=== PATIENT | female | born 1960 | race Caucasian/White ===

== ENCOUNTER 2017-04-13 11:37 | Emergency (ER) | payer OTHER ==
[2017-04-13] MEDS ORDERED: Lactated Ringers 1,000 ML IV SCH (12:30)
--- NOTE | 2017-04-13 12:48 | EDM.PDOC ---
ED HPI GENERAL MEDICAL PROBLEM - General Chief Complaint: Upper Extremity Injury/Pain Stated Complaint: LEFT ARM Time Seen by Provider: 04/13/17 11:40 Source of Information: Reports: Patient, Family History Limitations: Reports: No Limitations - History of Present Illness INITIAL COMMENTS - FREE TEXT/NARRATIVE: 57 y.o.w.oneyda came to the ed sgortly after she was ice skating and fell onto her right outstretched arm, noticing, she can not bend her left elbow anymore. No other acute medical issue at this time. BP 130/63 Plulse 56 Temp 36.7 Pulse ox 97% on RA Onset: Today Onset Date: 04/13/17 Onset Time: 11:00 Duration: Minutes:, Constant Location: Reports: Upper Extremity, Left Quality: Reports: Ache, Dull Severity: Moderate Improves with: Reports: Rest Worsens with: Reports: Movement Context: Reports: Trauma (fell on left elbow while roller scating) left elbow Pain Score (Numeric/FACES): 8 - Related Data Allergies Allergy/AdvReac Type Severity Reaction Status Date / Time pseudoephedrine HCl Allergy Unknown Cannot Verified 04/13/17 12:13 [From Sudafed] Remember cephalexin monohydrate Allergy Hives Verified 04/13/17 12:13 [From Keflex] levofloxacin [From Levaquin] Allergy Tachycardia Verified 04/13/17 12:13 Penicillins Allergy Hives Verified 04/13/17 12:13 telithromycin [From KETEK] Allergy Tachycardia Verified 04/13/17 12:13 frozen protien Allergy Hives Uncoded 04/13/17 12:13 Home Meds: Home Meds Albuterol [Ventolin HFA] 1 puff INH Q4H PRN 12/07/13 [History] Escitalopram Oxalate [Escitalopram Oxalate] 20 mg PO DAILY 12/07/13 [History] Fluticasone/Salmeterol [Advair HFA 115-21 MCG] 2 puff INH BID 12/07/13 [History] Losartan/Hydrochlorothiazide [Hyzaar 100-25 Tablet] 0.5 each PO DAILY 12/07/13 [ History] Metoprolol Tartrate [Lopressor] 50 mg PO BID 12/07/13 [History] Montelukast Sodium 10 mg PO BEDTIME 12/07/13 [History] Potassium Chloride [Klor-Con M20] 20 meq PO BID 12/07/13 [History] atorvaSTATin Calcium [Atorvastatin Calcium] 20 mg PO DAILY 12/07/13 [History] clonazePAM [Clonazepam] 0.5 mg PO BID 12/07/13 [History] Albuterol [Proventil Neb Soln] 1.25 mg NEB QIDRT 09/30/14 [History] Aspirin [Ecotrin] 81 mg PO DAILY 09/30/14 [History] Flaxseed [Flaxseed Oil] 1,000 mg BID 09/30/14 [History] Nitroglycerin [Nitrostat] 0.4 mg SL Q5M PRN 09/30/14 [History] Past Medical History HEENT History: Reports: Sinusitis Cardiovascular History: Reports: CAD, [place] Respiratory History: Reports: Asthma, Pneumonia, Recurrent, Pulmonary Fibrosis Musculoskeletal History: Reports: Back Pain, Chronic Other Musculoskeletal History: L ankle fx, Psychiatric History: Reports: Anxiety, Depression 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 Other Dermatologic History: ecxema - Past Surgical History Other HEENT Surgeries/Procedures: bilat laser surgery for glaucoma Other Musculoskeletal Surgeries/Procedures:: R rotator cuff surg, L hammer toe surg x 2, R foot surg x 2 Social & Family History - Tobacco Use Smoking Status *Q: Current Every Day Smoker Years of Tobacco use: 24 Packs/Tins Daily: 1.5 Second Hand Smoke Exposure: Yes - Alcohol Use Days Per Week of Alcohol Use: 0 - Recreational Drug Use Recreational Drug Use: No Review of Systems - Review of Systems Review Of Systems: See Below Constitutional: Reports: No Symptoms Eyes: Reports: No Symptoms Ears: Reports: No Symptoms Nose: Reports: No Symptoms Mouth/Throat: Reports: No Symptoms Respiratory: Reports: No Symptoms Cardiovascular: Reports: No Symptoms GI/Abdominal: Reports: No Symptoms Genitourinary: Reports: No Symptoms Musculoskeletal: Reports: Arm Pain Skin: Reports: No Symptoms Neurological: Reports: No Symptoms Psychiatric: Reports: No Symptoms ED EXAM, GENERAL - Physical Exam Exam: See Below Exam Limited By: No Limitations General Appearance: Alert, WD/WN, Mild Distress Eye Exam: Bilateral Eye: Normal Inspection Ears: Normal External Exam Ear Exam: Bilateral Ear: Auricle Normal Nose: Normal Inspection, Normal Mucosa Throat/Mouth: Normal Inspection, Normal Lips Head: Atraumatic, Normocephalic Neck: Normal Inspection, Supple, Non-Tender, Full Range of Motion Respiratory/Chest: No Respiratory Distress, Lungs Clear, Normal Breath Sounds, No Accessory Muscle Use Cardiovascular: Normal Peripheral Pulses, Regular Rate, Rhythm, No Edema, No JVD , No Murmur, No Rub Peripheral Pulses: 1+: Brachial (L) GI/Abdominal: Normal Bowel Sounds, Soft, Non-Tender (Female) Exam: Deferred Rectal (Female) Exam: Deferred Back Exam: Normal Inspection, Full Range of Motion Extremities: Arm Pain (left elbow pain due to closed post dislocation. ) Neurological: Alert, Oriented, CN II-XII Intact Psychiatric: Normal Affect, Normal Mood Skin Exam: Warm, Dry, Intact, Normal Color, No Rash Lymphatic: No Adenopathy ED TRAUMA EXTREMITY PROCEDURES - Joint Reduction Site: Other (left elbow postdislocation, closed) Sedation: Conscious Sedation (done by anesthesia) Pre-Procedure NV Status: Normal Post-Procedure NV Status: Normal Number of Attempts: 1 Post-Reduction Imaging: Completely Reduced, Fracture Seen (Coronoid process) Joint Reduction Complications: Yes Joint Reduction Complication Description: No complication - Splinting Right Upper Extremity Splint Site: R elbow after reduction Pre-Procedure NV Status: Normal Post-Procedure NV Status: Normal Splint Material: Plaster Applied & Form Fitted By: Provider Provider Post-Splint Application NV Check: NV Status Normal, Good Position Complications: No Course - Vital Signs Text/Narrative:: 57 y.o.w.oneyda came to the ed sgortly after she was ice skating and fell onto her right outstretched arm, noticing, she can not bend her left elbow anymore. No other acute medical issue at this time. BP 130/63 Plulse 56 Temp 36.7 Pulse ox 97% on RA PE: Closed post left elbow dislocation Imaging: Closed posterior elbow dislocation with possible coronoid process fx Impression: Closed posterior elbow dislocation with possible coronoid process fx Tx: Shoulde reduction, Plaster splint placed, left elbow. [place] Reexam: Improved, good CAP refill Plan: D/C with instructions Last Recorded V/S: Last Vital Signs Temp 36.7 C 04/13/17 13:17 Pulse 64 04/13/17 14:00 Resp 16 04/13/17 14:00 BP 112/52 L 04/13/17 14:00 Pulse Ox 97 04/13/17 14:00 - Orders/Labs/Meds Orders: Active Orders 24 hr Category Date Time Status Oxygen Therapy Adult [Oxygen Therapy, ED] [] Care 04/13/17 12:52 Active ASDIRECTED Peripheral IV Insertion Adult [OM.PC] Routine Oth 04/13/17 12:30 Ordered Meds: Medications Discontinued Medications Generic Name Dose Route Start Last Admin Trade Name Freq PRN Reason Stop Dose Admin Lactated Ringer's 1,000 mls @ 125 mls/hr 04/13/17 12:30 04/13/17 12:30 Ringers, Lactated IV 125 mls/hr ASDIRECTED HUNTER Administration Sodium Chloride 10 ml 04/13/17 14:03 04/13/17 12:30 Saline Flush FLUSH 10 ml ASDIRECTED PRN Administration Keep Vein Open Departure - Departure Time of Disposition: 13:40 Disposition: Home, Self-Care 01 Condition: Good Clinical Impression: Closed posterior dislocation of left elbow Qualifiers: Encounter type: initial encounter Qualified Code(s): S53.125A - Posterior dislocation of left ulnohumeral joint, initial encounter - Discharge Information Instructions: Elbow Fracture, Simple, Elbow Dislocation Referrals: Kelechi Florez MD [Primary Care Provider] - Roger Guy DO [Physician] - Forms: ED Department Discharge Additional Instructions: Rest, Ice and elevation, motrin for pain and healing, please come back if your symptoms get worse acutely. Follow Up Apr at [address] Jan [facility] at [facility]. [phone] - My Orders Last 24 Hours: My Active Orders 04/13/17 12:30 Peripheral IV Insertion Adult [OM.PC] Routine 04/13/17 12:52 Oxygen Therapy Adult [Oxygen Therapy, ED] [] ASDIRECTED - Assessment/Plan Last 24 Hours: My Active Orders 04/13/17 12:30 Peripheral IV Insertion Adult [OM.PC] Routine 04/13/17 12:52 Oxygen Therapy Adult [Oxygen Therapy, ED] [] ASDIRECTED
[2017-04-13] MEDS ORDERED: Propofol 200 MG/20 ML SDV IV ONE (12:50)
[2017-04-13] MEDS ORDERED: Midazolam 1 MG/ML 2 ML SDV IV ONE (12:50)
[2017-04-13] MEDS ORDERED: Sodium Chloride 0.9% 10 ML Syringe FLUSH PRN (14:03)
--- NOTE | 2017-04-13 14:32 | CR ---
INDICATION: Fall, injury, pain, and swelling. LEFT ELBOW: Frontal and lateral views of the left elbow reveal a posterior dislocation of the radius and ulna with respect to the humerus. There appears to be an angulated chip fracture fragment off the coronoid process of the ulna. A few other tiny areas of density are noted which could represent tiny avulsion chip fracture fragments along the olecranon process. No other bone or joint abnormality was seen. IMPRESSION: Fracture/dislocation elbow joint. MTDD
--- NOTE | 2017-04-13 14:36 | CR ---
INDICATION: Post reduction. LEFT ELBOW: Two views of the left elbow revealed the dislocation of the left elbow to be satisfactorily reduced. The chip fracture fragment seen on the lateral view, pre-reduction, is still visualized, but not as well seen with the overlying radius. No other bone or joint abnormality was suggested. IMPRESSION: Satisfactory reduction. Adequate position and alignment fracture/ dislocation of the elbow joint. Report was called to Dr. Silver immediately after the examination was completed , 04/13/2017. KRISTY
[2017-04-13 14:47] VITALS: BP 112/52
== END 2017-04-13 14:20 | disposition home or self-care (01) ==
LOC: FB.ED 11:37
DX: S53.125A Posterior dislocation of left ulnohumeral joint, initial encounter (principal); I25.10 Atherosclerotic heart disease of native coronary artery without angina pectoris; J45.909 Unspecified asthma, uncomplicated; F17.210 Nicotine dependence, cigarettes, uncomplicated; Z88.1 Allergy status to other antibiotic agents; Z88.0 Allergy status to penicillin; Z88.8 Allergy status to other drugs, medicaments and biological substances; Z79.899 Other long term (current) drug therapy; W19.XXXA Unspecified fall, initial encounter
CPT/HCPCS: 24600; 73070; 73080; 96361; 96374; 96375; 99152; 99284; J2250; J2704; J7050; J7120

== ENCOUNTER 2020-11-10 17:07 | Observation (INO) | payer OTHER ==
--- NOTE | 2020-11-10 17:32 | EDM.PDOC ---
ED HPI GENERAL MEDICAL PROBLEM - General Stated Complaint: anxiety Time Seen by Provider: 11/10/20 17:20 Source of Information: Reports: Patient History Limitations: Reports: No Limitations - History of Present Illness INITIAL COMMENTS - FREE TEXT/NARRATIVE: 60-year-old female who reports at approximately noon today she was walking up some steps and she felt very short winded and had to stop mcc up to rest before she can go all the way up the steps. She states this is quite unusual for her and that she normally does not have to do this. At 4:15 PM today she was sitting at her computer desk and she developed onset of pain in both of her upper posterior shoulder and upper back area that was an aching and sore type pain. Nothing really seemed to make the pain better and nothing seemed to make the pain worse. This pain was at a 6/10 level of discomfort and it lasted for approximately one hour. She was doing nothing except sitting at the computer desk when this occurred. She did not feel any shortness of breath. She had no nausea or vomiting. She did have a warm feeling that went across her entire left chest that lasted for about 10 minutes. This pain in her shoulders and the chest were has completely resolved and she feels back to normal except she feels very anxious about this and she came in for evaluation. She did take 4 baby aspirins at home when this occurred. She states that about 9-10 years ago she had some discomfort in her shoulders and chest and at that time, she had a heart attack (her troponin enzymes micah) and they did a cardiac catheterization that showed coronary artery disease but it was nothing that would require any intervention. She states that since then she gets quite a bit of anxiety whenever she has some pains that are similar to what she had at that time and feels that this is a contributing factor. No fevers or chills. No nasal congestion. No sore throat. No trouble swallowing. There are no other associated signs or symptoms. There are no other modifying factors. 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: Aspirin (4 baby aspirin) Bilateral Shoulder Pain Score (Numeric/FACES): 6 - Related Data Allergies Allergy/AdvReac Type Severity Reaction Status Date / Time pseudoephedrine HCl Allergy Unknown Cannot Verified 04/13/17 12:13 [From Sudafed] Remember cephalexin monohydrate Allergy Hives Verified 04/13/17 12:13 [From Keflex] levofloxacin [From Levaquin] Allergy Tachycardia Verified 04/13/17 12:13 Penicillins Allergy Hives Verified 04/13/17 12:13 telithromycin [From KETEK] Allergy Tachycardia Verified 04/13/17 12:13 frozen protien Allergy Hives Uncoded 04/13/17 12:13 Home Meds: Home Meds Albuterol [Ventolin HFA] 1 puff INH Q4H PRN 12/07/13 [History] Escitalopram Oxalate 20 mg PO DAILY 12/07/13 [History] Fluticasone/Salmeterol [Advair HFA 115-21 MCG] 2 puff INH BID 12/07/13 [History] Losartan/Hydrochlorothiazide [Hyzaar 100-25 Tablet] 0.5 each PO DAILY 12/07/13 [History] Metoprolol Tartrate [Lopressor] 50 mg PO BID 12/07/13 [History] Montelukast Sodium 10 mg PO BEDTIME 12/07/13 [History] Potassium Chloride [Klor-Con M20] 20 meq PO BID 12/07/13 [History] atorvaSTATin Calcium [Atorvastatin Calcium] 20 mg PO DAILY 12/07/13 [History] clonazePAM [Clonazepam] 0.5 mg PO BID 12/07/13 [History] Albuterol [Proventil Neb Soln] 1.25 mg NEB QIDRT 09/30/14 [History] Aspirin [Ecotrin] 81 mg PO DAILY 09/30/14 [History] Flaxseed [Flaxseed Oil] 1,000 mg BID 09/30/14 [History] Nitroglycerin [Nitrostat] 0.4 mg SL Q5M PRN 09/30/14 [History] Past Medical History HEENT History: Reports: Impaired Vision, Sinusitis Cardiovascular History: Reports: CAD, Hypertension, [place] Respiratory History: Reports: Asthma, Pneumonia, Recurrent, Pulmonary Fibrosis Musculoskeletal History: Reports: Back Pain, Chronic Other Musculoskeletal History: L ankle fx, Psychiatric History: Reports: Anxiety, Depression 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 Dermatologic History: Reports: Eczema - Past Surgical History Other HEENT Surgeries/Procedures: bilat laser surgery for glaucoma Cardiovascular Surgical History: Reports: Other (See Below) (Cardiac catheterization with no stent placed.) GI Surgical History: Reports: Appendectomy, Cholecystectomy Female Surgical History: Reports: Section, Hysterectomy Other Musculoskeletal Surgeries/Procedures:: R rotator cuff surg, L hammer toe surg x 2, R foot surg x 2 Social & Family History - Tobacco Use Tobacco Use Status *Q: Current Every Day Tobacco User - Alcohol Use Alcohol Use History: No - Living Situation & Occupation Living situation: Reports: Occupation: Employed (She is a teacher) ED ROS GENERAL - Review of Systems Review Of Systems: See Below Constitutional: Denies: Fever, Chills HEENT: Denies: Throat Pain Respiratory: Denies: Shortness of Breath, Cough Cardiovascular: Denies: Chest Pain, Palpitations GI/Abdominal: Denies: Abdominal Pain, Nausea, Vomiting : Denies: Dysuria, Pain Musculoskeletal: Reports: Back Pain. Denies: Shoulder Pain, Arm Pain, Foot Pain Skin: Denies: Diaphoresis, Rash Neurological: Denies: Dizziness, Headache Psychiatric: Reports: Anxiety Hematologic/Lymphatic: Denies: Easy Bleeding, Easy Bruising ED EXAM, GENERAL - Physical Exam Exam: See Below Exam Limited By: No Limitations General Appearance: Alert, WD/WN, Anxious (Otherwise, no acute distress.) Eye Exam: Bilateral Eye: EOMI, Normal Inspection, PERRL Ears: Normal External Exam, Hearing Grossly Normal Ear Exam: Bilateral Ear: Auricle Normal Nose: Normal Inspection, Normal Mucosa, No Blood Throat/Mouth: Normal Inspection, Normal Lips, Normal Oropharynx, Normal Voice, No Airway Compromise Head: Atraumatic, Normocephalic Neck: Normal Inspection, Supple, Non-Tender, Full Range of Motion Respiratory/Chest: No Respiratory Distress, Lungs Clear, Normal Breath Sounds, No Accessory Muscle Use, Chest Non-Tender Cardiovascular: Normal Peripheral Pulses, Regular Rate, Rhythm, No Murmur Peripheral Pulses: 2+: Radial (L), Radial (R), Dorsalis Pedis (L), Dorsalis Pedis (R) GI/Abdominal: Normal Bowel Sounds, Soft, Non-Tender, No Organomegaly Back Exam: Normal Inspection, Full Range of Motion Extremities: Normal Inspection, Normal Range of Motion, Non-Tender, No Pedal Edema, Normal Capillary Refill Neurological: Alert, Oriented, CN II-XII Intact, Normal Cognition, No Motor/Sensory Deficits Psychiatric: Anxious Skin Exam: Warm, Dry, Intact, Normal Color, No Rash #1 Interpretation EKG Date: 11/10/20 Time: 17:16 Rhythm: NSR Rate (Beats/Min): 65 [place]: Normal P-Wave: Present QRS: Normal ST-T: Normal QT: Normal Comparison: No Change (No change from an EKG performed on 09/30/2014.) Course - Vital Signs Last Recorded V/S: Last Vital Signs Temp 36.8 C 11/10/20 17:08 Pulse 67 11/10/20 17:08 Resp 18 11/10/20 17:08 BP 175/104 H 11/10/20 17:08 Pulse Ox 97 11/10/20 17:08 - Orders/Labs/Meds Orders: Active Orders 24 hr Category Date Time Status Chest 1V Frontal [CR] Stat Exams 11/10/20 17:51 Taken Sodium Chloride 0.9% [Saline Flush] Med 11/10/20 17:51 Active 10 ml FLUSH ASDIRECTED PRN Peripheral IV Insertion Adult [OM.PC] Routine Oth 11/10/20 17:51 Ordered EKG 12 Lead [EK] Routine Ther 11/10/20 17:52 Ordered Medication Orders Sodium Chloride (Sodium Chloride 0.9% 10 Ml Syringe) 10 ml FLUSH ASDIRECTED PRN PRN Reason: Keep Vein Open Labs: Laboratory Tests 11/10/20 11/10/20 11/10/20 Range/Units 18:00 18:00 18:00 WBC 6.0 (3.0-10.3) x10-3/uL RBC 4.46 (3.60-5.20) x10(6)uL Hgb 13.7 (11.4-15.5) g/dL Hct 40.3 (34.2-48.2) % MCV 90.3 (76.7-100.5) fL MCH 30.8 (23.9-33.9) pg MCHC 34.1 (31.9-34.8) g/dL RDW 13.4 (12.3-16.5) % Plt Count 275 (151-488) x10(3)uL MPV 7.4 (7.1-12.4) fL Neut % (Auto) 51.8 (30.8-76.2) % Lymph % (Auto) 35.4 (18.4-52.1) % [place] % (Auto) 8.5 (4.4-15.7) % Eos % (Auto) 3.4 (0.6-8.1) % Baso % (Auto) 0.9 (0.2-1.5) % Neut # (Auto) 3.1 (1.5-6.3) x10-3/uL Lymph # (Auto) 2.1 (1.0-4.4) x10-3/uL [place] # (Auto) 0.5 (0.3-1.0) x10-3/uL Eos # (Auto) 0.2 (0.0-0.8) x10-3/uL Baso # (Auto) 0.1 (0.0-0.1) x10-3/uL D-Dimer, Quantitative 0.36 (0.0-0.59) mg/LFEU Sodium 141 (135-145) mmol/L Potassium 4.4 (3.5-5.3) mmol/L Chloride 103 (100-110) mmol/L Carbon Dioxide 31 (21-32) mmol/L BUN 15 (7-18) mg/dL Creatinine 0.9 (0.55-1.02) mg/dL Est Cr Clr Drug Dosing 63.01 mL/min Estimated GFR (MDRD) > 60 (>60) BUN/Creatinine Ratio 16.7 (9-20) Glucose 98 (80-116) mg/dL Calcium 9.9 (8.6-10.2) mg/dL Magnesium 2.0 (1.8-2.5) mg/dL Total Bilirubin 0.4 (0.1-1.3) mg/dL AST 11 (5-25) IU/L ALT 19 (12-36) U/L Alkaline Phosphatase 126 H (56-112) IU/L Troponin I (4.0-60.3) pg/mL Total Protein 7.1 (6.0-8.0) g/dL Albumin 3.5 (3.5-5.2) g/dL Globulin 3.6 g/dL Albumin/Globulin Ratio 1.0 // Range/Units 18:00 WBC (3.0-10.3) x10-3/uL RBC (3.60-5.20) x10(6)uL Hgb (11.4-15.5) g/dL Hct (34.2-48.2) % MCV (76.7-100.5) fL MCH (23.9-33.9) pg MCHC (31.9-34.8) g/dL RDW (12.3-16.5) % Plt Count (151-488) x10(3)uL MPV (7.1-12.4) fL Neut % (Auto) (30.8-76.2) % Lymph % (Auto) (18.4-52.1) % [place] % (Auto) (4.4-15.7) % Eos % (Auto) (0.6-8.1) % Baso % (Auto) (0.2-1.5) % Neut # (Auto) (1.5-6.3) x10-3/uL Lymph # (Auto) (1.0-4.4) x10-3/uL [place] # (Auto) (0.3-1.0) x10-3/uL Eos # (Auto) (0.0-0.8) x10-3/uL Baso # (Auto) (0.0-0.1) x10-3/uL D-Dimer, Quantitative (0.0-0.59) mg/LFEU Sodium (135-145) mmol/L Potassium (3.5-5.3) mmol/L Chloride (100-110) mmol/L Carbon Dioxide (21-32) mmol/L BUN (7-18) mg/dL Creatinine (0.55-1.02) mg/dL Est Cr Clr Drug Dosing mL/min Estimated GFR (MDRD) (>60) BUN/Creatinine Ratio (9-20) Glucose (80-116) mg/dL Calcium (8.6-10.2) mg/dL Magnesium (1.8-2.5) mg/dL Total Bilirubin (0.1-1.3) mg/dL AST (5-25) IU/L ALT (12-36) U/L Alkaline Phosphatase (56-112) IU/L Troponin I 14.7 (4.0-60.3) pg/mL Total Protein (6.0-8.0) g/dL Albumin (3.5-5.2) g/dL Globulin g/dL Albumin/Globulin Ratio Meds: Medications Generic Name Dose Route Start Last Admin Trade Name Freq PRN Reason Stop Dose Admin Sodium Chloride 10 ml 11/10/20 17:51 Sodium Chloride 0.9% 10 Ml Syringe FLUSH ASDIRECTED PRN Keep Vein Open - Radiology Interpretation Free Text/Narrative:: Portable chest x-ray shows no acute disease per my read. - Re-Assessments/Exams Free Text/Narrative Re-Assessment/Exam: 11/10/20 19:28: Patient's initial troponin was normal. The d-dimer was normal. All of her other labs are reassuringly normal. EKG was normal. She is still pain-free. At this point, I am turning the patient over to Dr. Florez. Please see his note in regard to the patient's further ED course and disposition. Departure - Departure Time of Disposition: 19:30 Disposition: Still A Patient 30 Condition: Fair Clinical Impression: Upper back pain Chest pain Qualifiers: Chest pain type: unspecified Qualified Code(s): R07.9 - Chest pain, unspecified Referrals: Jojo Wilkes PA [Primary Care Provider] - Sepsis Event Note (ED) - Focused Exam Vital Signs: Vital Signs Temp Pulse Resp BP Pulse Ox 11/10/20 17:08 36.8 C 67 18 175/104 H 97 - My Orders Last 24 Hours: My Active Orders 11/10/20 17:51 Chest 1V Frontal [CR] Stat Sodium Chloride 0.9% [Saline Flush] 10 ml FLUSH ASDIRECTED PRN Peripheral IV Insertion Adult [OM.PC] Routine 11/10/20 17:52 EKG 12 Lead [EK] Routine - Assessment/Plan Last 24 Hours: My Active Orders 11/10/20 17:51 Chest 1V Frontal [CR] Stat Sodium Chloride 0.9% [Saline Flush] 10 ml FLUSH ASDIRECTED PRN Peripheral IV Insertion Adult [OM.PC] Routine 11/10/20 17:52 EKG 12 Lead [EK] Routine
[2020-11-10] MEDS ORDERED: Sodium Chloride 0.9% 10 ML Syringe FLUSH PRN (17:51)
[2020-11-10] MEDS ORDERED: LORazepam 0.5 MG Tab PO ONE (19:46)
[2020-11-10] MEDS ORDERED: cloNIDine 0.1 MG Tab PO ONE (21:24)
--- NOTE | 2020-11-10 21:24 | EDM.PDOC ---
ED HPI GENERAL MEDICAL PROBLEM - General Chief Complaint: General Stated Complaint: anxiety Time Seen by Provider: 11/10/20 17:20 Source of Information: Reports: Patient History Limitations: Reports: No Limitations - History of Present Illness INITIAL COMMENTS - FREE TEXT/NARRATIVE: Gianni came in due to upper shoulder pain,bilateral,since 4:15 P.Earlier she had had some dyspne on exertion. Also,her BPO was high,hence a need to check it out in the ED. She saw Anjel Charles,and initial workup is negative for ACS. Her SBP is in the 170's .and she is a little anxious.Her Past Medical Histroy includes CAD,HTn and tobacco abuse. 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) Bilateral Shoulder Pain Score (Numeric/FACES): 6 - Related Data Allergies Allergy/AdvReac Type Severity Reaction Status Date / Time pseudoephedrine HCl Allergy Unknown Cannot Verified 04/13/17 12:13 [From Sudafed] Remember cephalexin monohydrate Allergy Hives Verified 04/13/17 12:13 [From Keflex] levofloxacin [From Levaquin] Allergy Tachycardia Verified 04/13/17 12:13 Penicillins Allergy Hives Verified 04/13/17 12:13 telithromycin [From KETEK] Allergy Tachycardia Verified 04/13/17 12:13 frozen protien Allergy Hives Uncoded 04/13/17 12:13 Home Meds: Home Meds Albuterol [Ventolin HFA] 1 puff INH Q4H PRN 12/07/13 [History] Escitalopram Oxalate 20 mg PO DAILY 12/07/13 [History] Fluticasone/Salmeterol [Advair HFA 115-21 MCG] 2 puff INH BID 12/07/13 [History] Losartan/Hydrochlorothiazide [Hyzaar 100-25 Tablet] 0.5 each PO DAILY 12/07/13 [History] Metoprolol Tartrate [Lopressor] 50 mg PO BID 12/07/13 [History] Montelukast Sodium 10 mg PO BEDTIME 12/07/13 [History] Potassium Chloride [Klor-Con M20] 20 meq PO BID 12/07/13 [History] atorvaSTATin Calcium [Atorvastatin Calcium] 20 mg PO DAILY 12/07/13 [History] clonazePAM [Clonazepam] 0.5 mg PO BID 12/07/13 [History] Albuterol [Proventil Neb Soln] 1.25 mg NEB QIDRT 09/30/14 [History] Aspirin [Ecotrin] 81 mg PO DAILY 09/30/14 [History] Flaxseed [Flaxseed Oil] 1,000 mg BID 09/30/14 [History] Nitroglycerin [Nitrostat] 0.4 mg SL Q5M PRN 09/30/14 [History] Past Medical History HEENT History: Reports: Impaired Vision, Sinusitis Cardiovascular History: Reports: CAD, Hypertension, [place] Respiratory History: Reports: Asthma, Pneumonia, Recurrent, Pulmonary Fibrosis Musculoskeletal History: Reports: Back Pain, Chronic Other Musculoskeletal History: L ankle fx, Psychiatric History: Reports: Anxiety, Depression 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 Dermatologic History: Reports: Eczema Other Dermatologic History: ecxema - Past Surgical History Cardiovascular Surgical History: Reports: Other (See Below) (Cardiac catheterization with no stent placed.) GI Surgical History: Reports: Appendectomy, Cholecystectomy Female Surgical History: Reports: Section, Hysterectomy Social & Family History - Family History Family Medical History: No Pertinent Family History - Tobacco Use Tobacco Use Status *Q: Current Every Day Tobacco User Years of Tobacco use: 29 Packs/Tins Daily: 1 - Caffeine Use Caffeine Use: Reports: Coffee - Recreational Drug Use Recreational Drug Use: No - Living Situation & Occupation Living situation: Reports: Occupation: Employed (She is a teacher) ED ROS GENERAL - Review of Systems Review Of Systems: Comprehensive ROS is negative, except as noted in HPI. ED EXAM, GENERAL - Physical Exam Exam: See Below Free Text/Narrative:: 60-year-old female who reports at approximately noon today she was walking up some steps and she felt very short winded and had to stop correction up to rest before she can go all the way up the steps. She states this is quite unusual for her and that she normally does not have to do this. At 4:15 PM today she was sitting at her computer desk and she developed onset of pain in both of her upper posterior shoulder and upper back area that was an aching and sore type pain. Nothing really seemed to make the pain better and nothing seemed to make the pain worse. This pain was at a 6/10 level of discomfort and it lasted for approximately one hour. She was doing nothing except sitting at the computer desk when this occurred. She did not feel any shortness of breath. She had no nausea or vomiting. She did have a warm feeling that went across her entire left chest that lasted for about 10 minutes. This pain in her shoulders and the chest were has completely resolved and she feels back to normal except she feels very anxious about this and she came in for evaluation. She did take 4 baby aspirins at home when this occurred. She states that about 9-10 years ago she had some discomfort in her shoulders and chest and at that time, she had a heart attack (her troponin enzymes micah) and they did a cardiac catheterization that showed coronary artery disease but it was nothing that would require any in tervention. She states that since then she gets quite a bit of anxiety whenever she has some pains that are similar to what she had at that time and feels that this is a contributing factor. No fevers or chills. No nasal congestion. No sore throat. No trouble swallowing. There are no other associated signs or symptoms. There are no other modifying factors. Exam Limited By: No Limitations General Appearance: Alert, WD/WN, Anxious (Otherwise, no acute distress.) Ears: Normal External Exam, Hearing Grossly Normal Ear Exam: Bilateral Ear: Auricle Normal Nose: Normal Inspection, Normal Mucosa, No Blood Throat/Mouth: Normal Inspection, Normal Lips, Normal Oropharynx, Normal Voice, No Airway Compromise Head: Atraumatic, Normocephalic Neck: Normal Inspection, Supple, Non-Tender, Full Range of Motion Respiratory/Chest: No Respiratory Distress, Lungs Clear, Normal Breath Sounds, No Accessory Muscle Use, Chest Non-Tender Cardiovascular: Normal Peripheral Pulses, Regular Rate, Rhythm, No Murmur Peripheral Pulses: 2+: Radial (L), Radial (R), Dorsalis Pedis (L), Dorsalis Pedis (R) GI/Abdominal: Normal Bowel Sounds, Soft, Non-Tender, No Organomegaly Back Exam: Normal Inspection, Full Range of Motion Extremities: Normal Inspection, Normal Range of Motion, Non-Tender, No Pedal Edema, Normal Capillary Refill Neurological: Alert, Oriented, CN II-XII Intact, Normal Cognition, No Motor/Sensory Deficits Psychiatric: Anxious Skin Exam: Warm, Dry, Intact, Normal Color, No Rash #2 Interpretation EKG Date: 11/10/20 Time: 21:12 Rhythm: NSR [place]: Normal P-Wave: Present QRS: Normal Comparison: Change From Previous EKG Course - Vital Signs Last Recorded V/S: Last Vital Signs Temp 98.2 F 11/10/20 17:08 Pulse 67 11/10/20 17:08 Resp 18 11/10/20 17:08 BP 153/88 H 11/10/20 21:30 Pulse Ox 97 11/10/20 17:08 - Orders/Labs/Meds Orders: Active Orders 24 hr Category Date Time Status Patient Status [ADT] Routine ADT 11/10/20 22:05 Ordered Cardiac Monitoring [RC] CONTINUOUS Care 11/10/20 22:06 Ordered EKG Documentation Completion [RC] ASDIRECTED Care 11/10/20 19:32 Active EKG Documentation Completion [RC] ASDIRECTED Care 11/10/20 22:07 Ordered Oxygen Therapy [RC] PRN Care 11/10/20 22:05 Ordered RT Aerosol Therapy [RC] ASDIRECTED Care 11/10/20 22:07 Ordered Up ad Neeru [RC] ASDIRECTED Care 11/10/20 22:05 Ordered VTE/DVT Education [RC] Per Unit Routine Care 11/10/20 22:05 Ordered Vital Signs [RC] Q4H Care 11/10/20 22:05 Ordered Regular Diet [DIET] Diet 11/10/20 Breakfast Ordered Chest 1V Frontal [CR] Stat Exams 11/10/20 17:51 Taken TROPONIN I [CHEM] AM Lab 11/11/20 05:11 Ordered Albuterol [Proventil Neb Soln] Med 11/10/20 22:05 Ordered 2.5 mg NEB Q2H PRN Sodium Chloride 0.9% [Saline Flush] Med 11/10/20 17:51 Active 10 ml FLUSH ASDIRECTED PRN Peripheral IV Insertion Adult [OM.PC] Routine Oth 11/10/20 17:51 Ordered Resuscitation Status Routine Resus Stat 11/10/20 22:05 Ordered EKG 12 Lead [EK] AM Ther 11/11/20 05:11 Ordered EKG 12 Lead [EK] Routine Ther 11/10/20 17:52 Ordered EKG 12 Lead [EK] Routine Ther 11/11/20 21:00 Ordered Medication Orders Albuterol (Albuterol 0.083% 2.5 Mg/3 Ml Neb Soln) 2.5 mg NEB Q2H PRN PRN Reason: Shortness Of Breath/wheezing Sodium Chloride (Sodium Chloride 0.9% 10 Ml Syringe) 10 ml FLUSH ASDIRECTED PRN PRN Reason: Keep Vein Open Labs: Laboratory Tests 11/10/20 11/10/20 11/10/20 Range/Units 18:00 18:00 18:00 WBC 6.0 (3.0-10.3) x10-3/uL RBC 4.46 (3.60-5.20) x10(6)uL Hgb 13.7 (11.4-15.5) g/dL Hct 40.3 (34.2-48.2) % MCV 90.3 (76.7-100.5) fL MCH 30.8 (23.9-33.9) pg MCHC 34.1 (31.9-34.8) g/dL RDW 13.4 (12.3-16.5) % Plt Count 275 (151-488) x10(3)uL MPV 7.4 (7.1-12.4) fL Neut % (Auto) 51.8 (30.8-76.2) % Lymph % (Auto) 35.4 (18.4-52.1) % [place] % (Auto) 8.5 (4.4-15.7) % Eos % (Auto) 3.4 (0.6-8.1) % Baso % (Auto) 0.9 (0.2-1.5) % Neut # (Auto) 3.1 (1.5-6.3) x10-3/uL Lymph # (Auto) 2.1 (1.0-4.4) x10-3/uL [place] # (Auto) 0.5 (0.3-1.0) x10-3/uL Eos # (Auto) 0.2 (0.0-0.8) x10-3/uL Baso # (Auto) 0.1 (0.0-0.1) x10-3/uL D-Dimer, Quantitative 0.36 (0.0-0.59) mg/LFEU Sodium 141 (135-145) mmol/L Potassium 4.4 (3.5-5.3) mmol/L Chloride 103 (100-110) mmol/L Carbon Dioxide 31 (21-32) mmol/L BUN 15 (7-18) mg/dL Creatinine 0.9 (0.55-1.02) mg/dL Est Cr Clr Drug Dosing 63.01 mL/min Estimated GFR (MDRD) > 60 (>60) BUN/Creatinine Ratio 16.7 (9-20) Glucose 98 (80-116) mg/dL Calcium 9.9 (8.6-10.2) mg/dL Magnesium 2.0 (1.8-2.5) mg/dL Total Bilirubin 0.4 (0.1-1.3) mg/dL AST 11 (5-25) IU/L ALT 19 (12-36) U/L Alkaline Phosphatase 126 H (56-112) IU/L Troponin I (4.0-60.3) pg/mL Total Protein 7.1 (6.0-8.0) g/dL Albumin 3.5 (3.5-5.2) g/dL Globulin 3.6 g/dL Albumin/Globulin Ratio 1.0 11/10/20 11/10/20 Range/Units 18:00 21:05 WBC (3.0-10.3) x10-3/uL RBC (3.60-5.20) x10(6)uL Hgb (11.4-15.5) g/dL Hct (34.2-48.2) % MCV (76.7-100.5) fL MCH (23.9-33.9) pg MCHC (31.9-34.8) g/dL RDW (12.3-16.5) % Plt Count (151-488) x10(3)uL MPV (7.1-12.4) fL Neut % (Auto) (30.8-76.2) % Lymph % (Auto) (18.4-52.1) % [place] % (Auto) (4.4-15.7) % Eos % (Auto) (0.6-8.1) % Baso % (Auto) (0.2-1.5) % Neut # (Auto) (1.5-6.3) x10-3/uL Lymph # (Auto) (1.0-4.4) x10-3/uL [place] # (Auto) (0.3-1.0) x10-3/uL Eos # (Auto) (0.0-0.8) x10-3/uL Baso # (Auto) (0.0-0.1) x10-3/uL D-Dimer, Quantitative (0.0-0.59) mg/LFEU Sodium (135-145) mmol/L Potassium (3.5-5.3) mmol/L Chloride (100-110) mmol/L Carbon Dioxide (21-32) mmol/L BUN (7-18) mg/dL Creatinine (0.55-1.02) mg/dL Est Cr Clr Drug Dosing mL/min Estimated GFR (MDRD) (>60) BUN/Creatinine Ratio (9-20) Glucose (80-116) mg/dL Calcium (8.6-10.2) mg/dL Magnesium (1.8-2.5) mg/dL Total Bilirubin (0.1-1.3) mg/dL AST (5-25) IU/L ALT (12-36) U/L Alkaline Phosphatase (56-112) IU/L Troponin I 14.7 65.3 H* (4.0-60.3) pg/mL Total Protein (6.0-8.0) g/dL Albumin (3.5-5.2) g/dL Globulin g/dL Albumin/Globulin Ratio Meds: Medications Generic Name Dose Route Start Last Admin Trade Name Freq PRN Reason Stop Dose Admin Albuterol 2.5 mg 11/10/20 22:05 Albuterol 0.083% 2.5 Mg/3 Ml Neb Soln NEB Q2H PRN Shortness Of Breath/wheezing Sodium Chloride 10 ml 11/10/20 17:51 Sodium Chloride 0.9% 10 Ml Syringe FLUSH ASDIRECTED PRN Keep Vein Open Discontinued Medications Generic Name Dose Route Start Last Admin Trade Name Freq PRN Reason Stop Dose Admin Clonidine HCl 0.1 mg 11/10/20 21:24 11/10/20 21:30 Clonidine 0.1 Mg Tab PO 11/10/20 21:25 0.1 mg ONETIME ONE Administration Lorazepam 0.5 mg 11/10/20 19:46 11/10/20 21:18 Lorazepam 0.5 Mg Tab PO 11/10/20 19:47 0.5 mg ONETIME ONE Administration Departure - Departure Time of Disposition: 22:09 Disposition: Refer to Observation Condition: Fair Clinical Impression: Upper back pain Chest pain Qualifiers: Chest pain type: unspecified Qualified Code(s): R07.9 - Chest pain, unspecified Shoulder pain, left Qualifiers: Chronicity: unspecified Qualified Code(s): M25.512 - Pain in left shoulder Instructions: Shoulder Pain Referrals: Jojo Wilkes PA [Primary Care Provider] - Sepsis Event Note (ED) - Evaluation Sepsis Screening Result: No Definite Risk - Focused Exam Vital Signs: Vital Signs Temp Pulse Resp BP BP Pulse Ox 11/10/20 21:30 153/88 H 11/10/20 17:08 98.2 F 67 18 175/104 H 97 - Problem List & Annotations (1) HTN (hypertension) with goal to be determined SNOMED Code(s): 72631578 Code(s): I10 - ESSENTIAL (PRIMARY) HYPERTENSION Status: Acute Current Visit: Yes (2) Anxiety SNOMED Code(s): 89482707 Code(s): F41.9 - ANXIETY DISORDER, UNSPECIFIED Status: Acute Current Visit: Yes (3) Shoulder pain, left SNOMED Code(s): 24201108, 89869993 Code(s): M25.512 - PAIN IN LEFT SHOULDER Status: Acute Current Visit: Yes Annotation/Comment:: Mild exacerbation of chronic back pain, managed with massage, stretches, NSAIDs, and follow up with PCP. Qualifiers: Chronicity: unspecified Qualified Code(s): M25.512 - Pain in left shoulder (4) Upper back pain SNOMED Code(s): 927015792 Code(s): M54.9 - DORSALGIA, UNSPECIFIED Status: Acute Current Visit: Yes (5) Tobacco abuse SNOMED Code(s): 183791798 Code(s): Z72.0 - TOBACCO USE Status: Acute Current Visit: Yes - Problem List Review Problem List Initiated/Reviewed/Updated: Yes - My Orders Last 24 Hours: My Active Orders 11/10/20 Breakfast Regular Diet [DIET] 11/10/20 19:32 EKG Documentation Completion [RC] ASDIRECTED 11/10/20 22:05 Patient Status [ADT] Routine Oxygen Therapy [RC] PRN Up ad Neeru [RC] ASDIRECTED VTE/DVT Education [RC] Per Unit Routine Vital Signs [RC] Q4H Albuterol [Proventil Neb Soln] 2.5 mg NEB Q2H PRN Resuscitation Status Routine 11/10/20 22:06 Cardiac Monitoring [RC] CONTINUOUS 11/10/20 22:07 EKG Documentation Completion [RC] ASDIRECTED RT Aerosol Therapy [RC] ASDIRECTED 11/11/20 05:11 TROPONIN I [CHEM] AM EKG 12 Lead [EK] AM 11/11/20 21:00 EKG 12 Lead [EK] Routine - Assessment/Plan Last 24 Hours: My Active Orders 11/10/20 Breakfast Regular Diet [DIET] 11/10/20 19:32 EKG Documentation Completion [RC] ASDIRECTED 11/10/20 22:05 Patient Status [ADT] Routine Oxygen Therapy [RC] PRN Up ad Neeru [RC] ASDIRECTED VTE/DVT Education [RC] Per Unit Routine Vital Signs [RC] Q4H Albuterol [Proventil Neb Soln] 2.5 mg NEB Q2H PRN Resuscitation Status Routine 11/10/20 22:06 Cardiac Monitoring [RC] CONTINUOUS 11/10/20 22:07 EKG Documentation Completion [RC] ASDIRECTED RT Aerosol Therapy [RC] ASDIRECTED 11/11/20 05:11 TROPONIN I [CHEM] AM EKG 12 Lead [EK] AM 11/11/20 21:00 EKG 12 Lead [EK] Routine Plan: Her repeat trop went up by a few points. She has no chest pain. Denies any active SOB. But tpo her risk factors,I need to make sure to trend the troponin., Her EKG is negative x 2. I truly do not suspect ACS,but will have to make sure by admission to a monitored bed and a repeat troponin and EKG in the AM. Should it trend upwards or should she become symptomatic then ,we can transfer her to [facility] for definitive care..
[2020-11-10] MEDS ORDERED: Albuterol 0.083% 2.5 MG/3 ML Neb Soln NEB PRN (22:05)
[2020-11-11] MEDS ORDERED: LORazepam 1 MG Tab PO PRN (08:22)
[2020-11-11] MEDS ORDERED: Heparin Sodium 5,000 Units/ML Vial IVPUSH ONE ×2 (08:29→10:15)
[2020-11-11] MEDS ORDERED: Heparin Sodium/0.45% NaCl 500 ML IV SCH (08:30)
--- NOTE | 2020-11-11 08:59 | PCM.EKG ---
#1 Interpretation Rhythm: NSR [facility]: Normal P-Wave: Present QRS: Normal ST-T: Normal QT: Normal Comparison: Change From Previous EKG
[2020-11-11] MEDS ORDERED: Albuterol 8 GM Inhaler INH PRN (09:03)
[2020-11-11] MEDS ORDERED: Nitroglycerin 0.4 MG Tab.SL SL PRN (09:03)
--- NOTE | 2020-11-11 09:44 | HP ---
ADMISSION DATE: 11/10/2020 HISTORY: Gianni is a 60-year-old woman with a remote history of an [place] back in 2007 with a subsequent angiogram showing nonobstructive coronary arteries. She had been maintained on beta charlene, TYESHA, statin, and aspirin since that time, and over the years, she has had occasional episodes where she gets anxious, discomfort in her shoulders, and a hot sensation throughout her torso. She gets anxious with these episodes and always worries that it might be another heart attack starting, but she has never had another episode like that. Yesterday, she was walking up a flight of stairs, carrying something, and she got extremely short of breath. She had to stop on the way up and this was quite unusual for her. Later in the afternoon yesterday, she developed aching in both shoulders with a flushed hot sensation in her body. She was not dyspneic, sweaty, or nauseated, but just overall did not feel well. She came into the emergency room where she was evaluated. Initial exam was unremarkable. EKG was normal. Troponin was 14 (4 to 60.3). She was admitted to Observation and last evening her troponin micah to 65. This morning, her troponin came back at 997. She has not had any additional symptoms since she has been here. PAST MEDICAL HISTORY: [place] in 2007 with subsequent angiogram showing nonobstructive arteries. She has also had right rotator cuff surgery, cholecystectomy, C-sections x2 with appendectomy, total abdominal hysterectomy. She had foot surgery on the great toe and tendons for arthritis and hammertoe, both feet. She had scope of her left knee in March. She has chronic asthma and hypertension. She is on Lexapro for anxiety and Singulair for allergies. MEDICATIONS: 1. Potassium chloride 20 mEq b.i.d. 2. Nitroglycerin p.r.n. 3. Singulair 10 mg at bedtime. 4. Losartan 100 mg daily. 5. Hydrochlorothiazide 25 mg daily. 6. Advair 115/21 two puffs b.i.d. 7. Flaxseed oil capsule 1 b.i.d. 8. Lexapro 20 mg at bedtime. 9. Carvedilol 3.125 mg b.i.d. 10.Atorvastatin 20 mg daily. 11.Aspirin 81 mg daily. 12.Albuterol inhaler p.r.n. ALLERGIES: Sudafed, reaction unknown; cephalexin caused hives; Levaquin caused tachycardia; penicillin caused hives; telithromycin caused tachycardia; and some sort of a frozen protein caused hives. HABITS: One pack per day cigarette smoker. No alcohol. FAMILY AND SOCIAL HISTORY: The patient has been to her current 21 years. They have 5 children between them, all grown. 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 Her is semi-retired from [employer], and they live in [place]. REVIEW OF SYSTEMS: GENERAL: No seizure, syncope, recent seizure, or weight change. She does have fairly frequent sinus type headaches. No recent change in hearing or vision. No sore throat or cough. No respiratory symptoms. No dyspnea, chest pain, palpitations. No abdominal pain, nausea, diarrhea, constipation. No swelling or skin rash. PHYSICAL EXAMINATION: GENERAL: She is alert and comfortable. She is mildly anxious. VITAL SIGNS: Blood pressure 130/77, pulse 62, respirations 16, temperature 97.9, weight 223 pounds, O2 saturation 95% on room air. SKIN: Anicteric, warm, dry, without rash. HEENT: Mouth is dry. TMs are clear. Pupils equal and reactive. Oropharynx is clear. LUNGS: Clear to the bases. HEART: Regular without murmur, rub, or gallop. ABDOMEN: Normal bowel sounds. Soft and nontender. No masses or organomegaly. EXTREMITIES: Show no edema. NEUROLOGIC: Mental status intact. Motor exam is symmetric. LABORATORY DATA: Hemoglobin 13.7, potassium 4.4, BUN 15, creatinine 0.9. Troponin 997. EKG is normal. ASSESSMENT: 1. A 60-year-old woman with an acute nontransmural myocardial infarction. 2. Coronary artery disease. 3. Asthma. 4. Hyperlipidemia. 5. Chronic essential hypertension. 6. Anxiety. PLAN: I have had phone consultation with Dr. Richter at [facility] in [place]. He will accept the patient in transfer when a bed opens up, anticipated this afternoon. I will start her on a heparin drip and have nitroglycerin and other medications available should she develop symptoms. /[id number] HAVEN/RIMMA
[2020-11-11] MEDS ORDERED: Acetaminophen 325 MG Tab PO PRN (11:22)
[2020-11-11] MEDS ORDERED: Nitroglycerin 0.1 MG/HR Transdermal Patch TRDERM SCH (11:45)
[2020-11-11 14:09] VITALS: BP 133/74; PULSE 72
[2020-11-11] MEDS ORDERED: Escitalopram 20 MG Tab PO SCH (21:00)
[2020-11-11] MEDS ORDERED: Carvedilol 3.125 MG Tab PO SCH (21:00)
[2020-11-11] MEDS ORDERED: Formoterol/Mometasone 200-5 MCG 8.8 GM Inhaler IH SCH (21:00)
[2020-11-12] MEDS ORDERED: Aspirin 81 MG Tab.EC PO SCH (09:00)
--- NOTE | 2020-11-14 11:41 | DISCH ---
DISCHARGE DATE: 11/11/2020 PRIMARY FINAL DIAGNOSIS: Subendocardial myocardial infarction. OTHER DIAGNOSES: Chronic asthma, hyperlipidemia, hypertension, anxiety. OPERATIONS: None. COMPLICATIONS: None. SUMMARY: Gianni is a 60-year-old woman with a remote history of [place] back in 2007. She came in with shortness of breath. Initial troponin was negative exam. EKG was normal, but by the next morning, her troponin micah to 997. For this reason, Cardiology was consulted in [place]. She was started on heparin drip and arrangements were made for transfer. She is transported by ambulance to [facility] in good condition, and will have follow up here with her regular doctor once her treatment in [place] is completed. /[id number] HAVEN/RIMMA
== END 2020-11-11 13:56 ==
LOC: FB.ED 17:07 → FB.MS 22:22
PROVIDERS: ADMIT Family Medicine; ATTEND Family Medicine
DX: I21.4 Non-ST elevation (NSTEMI) myocardial infarction (principal); I25.10 Atherosclerotic heart disease of native coronary artery without angina pectoris; J45.909 Unspecified asthma, uncomplicated; E78.5 Hyperlipidemia, unspecified; I10 Essential (primary) hypertension; F41.9 Anxiety disorder, unspecified; F17.210 Nicotine dependence, cigarettes, uncomplicated; Z88.0 Allergy status to penicillin; Z20.822 Contact with and (suspected) exposure to COVID-19; Z90.49 Acquired absence of other specified parts of digestive tract; Z98.890 Other specified postprocedural states; Z79.899 Other long term (current) drug therapy; Z79.82 Long term (current) use of aspirin; Z88.8 Allergy status to other drugs, medicaments and biological substances
CPT/HCPCS: 36415; 71045; 80053; 83735; 84484; 85025; 85379; 87635; 93005; 99285; A9270; J1644; 96374; G0378; U0002

== ENCOUNTER 2022-11-17 21:16 | Emergency (ER) | payer OTHER ==
[2022-11-17] MEDS ORDERED: LORazepam 1 MG Tab PO ONE (22:07)
[2022-11-17 22:11] LABS: BASOPHILS ABSOLUTE AUTO 0.1 x10-3/uL (0.0-0.1); BASOPHILS PERCENT AUTO 0.6 % (0.2-1.5); EOSINOPHILS ABSOLUTE AUTO 0.3 x10-3/uL (0.0-0.8); EOSINOPHILS PERCENT AUTO 3.5 % (0.6-8.1); HEMATOCRIT 40.3 % (34.2-48.2); HEMOGLOBIN 13.9 g/dL (11.4-15.5); LYMPHOCYTES ABSOLUTE AUTO 2.2 x10-3/uL (1.0-4.4); MEAN CORPUSCULAR HEMOGLOBIN 32.1 pg (23.9-33.9); MEAN CORPUSCULAR HGB CONC 34.4 g/dL (31.9-34.8); MEAN CORPUSCULAR VOLUME 93.3 fL (76.7-100.5); MEAN PLATELET VOLUME 7.9 fL (7.1-12.4); MONOCYTES ABSOLUTE AUTO 0.6 x10-3/uL (0.3-1.0); NEUTROPHILS ABSOLUTE AUTO 5.1 x10-3/uL (1.5-6.3); NEUTROPHILS PERCENT AUTO 61.9 % (30.8-76.2); PLATELET COUNT,PLT 295 x10(3)uL (151-488); RED BLOOD CELL COUNT 4.32 x10(6)uL (3.60-5.20); RED CELL DISTRIBUTION WIDTH 12.9 % (12.3-16.5); WHITE BLOOD CELL COUNT,WBC 8.3 x10-3/uL (3.0-10.3)
[2022-11-17 22:14] LABS: BLOOD UREA NITROGEN,BUN 9 mg/dL (7-18); CARBON DIOXIDE,CO2 31 mmol/L (21-32); CHLORIDE,CL 100 mmol/L (100-110); CREATININE 0.9 mg/dL (0.55-1.02); ESTIMATED GFR 73 mL/min (>60); GLUCOSE RANDOM 132 mg/dL (80-116); POTASSIUM,K 3.2 mmol/L (3.5-5.3); SODIUM,NA 137 mmol/L (135-145)
[2022-11-17] MEDS ORDERED: cloNIDine 0.1 MG Tab PO ONE (22:36)
[2022-11-18 02:39] VITALS: BP 168/95; PULSE 65
== END 2022-11-17 23:00 | disposition home or self-care (01) ==
LOC: FB.ED 21:16
DX: F41.9 Anxiety disorder, unspecified (principal); I25.10 Atherosclerotic heart disease of native coronary artery without angina pectoris; I10 Essential (primary) hypertension; I25.2 Old myocardial infarction; Z88.0 Allergy status to penicillin; Z88.1 Allergy status to other antibiotic agents; Z88.8 Allergy status to other drugs, medicaments and biological substances; Z91.018 Allergy to other foods; Z79.82 Long term (current) use of aspirin; Z79.899 Other long term (current) drug therapy
CPT/HCPCS: 36415; 80048; 84484; 85025; 93005; 99283; A9270